=== PATIENT | male | born 1995 | race Two or more races ===

== ENCOUNTER 2019-04-04 12:36 | Emergency (ER) | payer SELFPAY ==
[2019-04-04 12:50] VITALS: BP 117/72
[2019-04-04] MEDS ORDERED: AMOXICILLIN TR/POT CLAVULANATE 500-125 MG TAB PO ONE (14:13)
[2019-04-04] MEDS ORDERED: AMOXICILLIN TRIHYD 250 MG CAPSULE PO ONE (14:13)
--- NOTE | 2019-04-04 14:19 | ER Document Report ---
HPI - HPI Patient complains to provider of: Cat bite Time Seen by Provider: 04/04/19 14:06 Onset: Other - 2 days ago Onset/Duration: Persistent Quality of pain: Achy Pain Level: 2 Context: Patient states that he was bit by a cat to the left leg 2 days ago. Patient states cat has otherwise been appearing well. Patient states that he was playing with a cat and it bit him through blanket. Patient states that they recently adopted the cat 8 days ago. Patient is uncertain of cats immunizations. Patient did go [facility] and received a tetanus vaccination today. Associated Symptoms: Other - Cat bite to left leg Exacerbated by: Denies Relieved by: Denies Similar symptoms previously: No Recently seen / treated by doctor: No - ROS ROS below otherwise negative: Yes Systems Reviewed and Negative: Yes All other systems reviewed and negative - CONSTITUTIONAL Constitutional: DENIES: Fever, Chills - NEURO Neurology: DENIES: Headache - GASTROINTESTINAL Gastrointestinal: DENIES: Nausea - DERM Skin Color: Normal Skin Problems: Puncture Wound Past Medical History - General Information source: Patient - Social History Smoking Status: Never Smoker Chew tobacco use (# tins/day): No Drug Abuse: None Occupation: None Lives with: Family Family History: Reviewed & Not Pertinent Patient has suicidal ideation: No Patient has homicidal ideation: No Psychiatric Medical History: Reports: Hx Depression Surgical Hx: Negative - Immunizations Hx Diphtheria, Pertussis, Tetanus Vaccination: Yes Vertical Provider Document - CONSTITUTIONAL Agree With Documented VS: Yes Exam Limitations: No Limitations General Appearance: WD/WN, No Apparent Distress - HEENT HEENT: Atraumatic, Normocephalic - NECK Neck: Normal Inspection - RESPIRATORY Respiratory: Breath Sounds Normal, No Respiratory Distress - CARDIOVASCULAR Cardiovascular: Regular Rate, Regular Rhythm - MUSCULOSKELETAL/EXTREMETIES Musculoskeletal/Extremeties: [id number] - NEURO Level of Consciousness: Awake, Alert, Appropriate Motor/Sensory: No Motor Deficit - DERM Integumentary: Warm, Dry Notes: Puncture wound and abrasion to the left lower leg, no surrounding erythema Course - Re-evaluation Re-evalutation: 04/04/19 14:19 Patient recently adopted a cat and are uncertain of its vaccination status. Cat has otherwise been well appearing. Cat bit the left lower leg. Patient encouraged to follow-up with animal control as well as the sport intern and to quarantine the animal. Patient advised that if they determined that the animal is starting to appear sick or if they recommend the rabies vaccination series, patient was advised to return here immediately for the vaccination. Patient was offered the vaccination series at this time although the prefer to wait as animal otherwise appears well and they will follow-up with the vet and animal control. Patient is aware that they can return at any time receive the vaccination if the animal starts to appear unwell or if they are advised to do so by the vet or animal control. 04/04/19 21:25 - Vital Signs Vital signs: Temp Pulse Resp BP Pulse Ox 99.0 F 108 H 16 117/72 98 04/04/19 12:47 04/04/19 12:47 04/04/19 12:47 04/04/19 12:47 04/04/19 12:47 Discharge - Discharge Clinical Impression: Cat bite Qualifiers: Encounter type: initial encounter Qualified Code(s): W55.01XA - Bitten by cat, initial encounter Condition: Stable Disposition: HOME, SELF-CARE Instructions: Animal Bites ([facility]), Augmentin ([facility]) Additional Instructions: Return immediately for any new or worsening symptoms Followup with your primary care provider, call tomorrow to make a followup appointment Animal should be quarantined away from other pets in the household. Contact animal control as well as your sport intern for follow-up. If animal starts to appear sick or if the vet or animal control have concerns about the health of the animal, return immediately and we will administer the rabies vaccination series Prescriptions: Amox Tr/Potassium Clavulanate [Augmentin 875-125 Tablet] 1 tab PO BID 5 Days tablet [facility] - Follow up as needed [facility] [Provider Group] - Follow up as needed
== END 2019-04-04 14:21 | disposition home or self-care (01) ==
LOC: ER 12:36
DX: S81.852A Open bite, left lower leg, initial encounter (principal); W55.01XA Bitten by cat, initial encounter
CPT/HCPCS: 99283; J3490